=== PATIENT | female | born 1950 | race Caucasian/White ===

== ENCOUNTER 2016-05-25 14:45 | Observation (INO) | payer MEDICARE, OTHER ==
[2016-05-25] VITALS (7 sets, daily range): BP systolic 137–167; BP diastolic 78–91; PULSE 61–78; RESP 11–20; O2SAT 95–98
[~2016-05-25] VITALS: Ht 157.5 cm; Wt 59.1 kg
[2016-05-25 15:10] LABS: EOSINOPHILS % (AUTO) 1.5 % (0-5); Mean Corpuscular Volume 89.8 fL (81-100)
[2016-05-25 15:17] LABS: BASOPHILS % (AUTO) 2.4 % (0-3); MONOCYTES % (AUTO) 8.6 % (4-12); Mean Corpuscular Hemoglobin 30.3 pg (27.0-35.0); NEUTROPHILS % (AUTO) 52.2 % (40-74); Platelet Count 170 bil/L (150-400)
--- NOTE | 2016-05-25 15:19 | ED.REPORT ---
HPI-Chest Pain 40 and Over Date of Service May 25, 2016 ED Provider: Dr. Bentley 65 year old female with a history of CAD, hypertension, hep C and a non-smoker who presents to the ED due to moderate chest pressure that has been progressively worsening in the last 2 weeks. The pain has been present for years , but is concerned about the recent severity. The pain typically lasts from minutes to hours. Pain is worse with exacerbation, but has also been present at rest recently. Pt takes a baby ASA daily. Her last cardiac cath was within the last 5 years at [place] [address] Joyner. Pt has a family history of CAD ( mother and father). PCP: [facility] Notes Stated Complaint: POSSIBLE PRESSURE ON HEART Chief Complaint: Chest Pain Nursing Notes Reviewed: Yes Allergies: Coded Allergies: No Known Allergies (Unverified , 05/25/16) Scheduled Aspirin (Aspirin) 81 Mg Tablet 81 MG PO HS Atenolol (Atenolol) Unknown Strength Tablet 12.5 MG PO HS Estradiol/Levonorgestrel (Climara Pro Patch) 1 Each Patch.tdwk 1 EACH TD WEEKLY Miscellaneous Medications Sumatriptan (Imitrex) Unknown Strength Tablet Unknown Dose PO General Time Seen by MD: 15:19 Chief Complaint Chest pressure Hx Obtained From: Patient Arrived By: Walk-in Sudden in Onset?: No Onset Occurred: More than a week ago... Symptom Duration: Intermittent Location: : Substernal Quality: Pressure Severity: Current: Mild Associated with: Denies: Fever, Shortness of Breath Pertinent Negative: Relieved by nothing Similar Sx Previous: Yes Risk Factors )( CAD Risk Stratification Risk factors reviewed )( TAD Risk Stratification Risk factors reviewed )( PE Risk Stratification Risk factors reviewed Past Medical History Past Medical History Hep C Hypertension Coronary artery disease Past Surgical History None Smoking History Never Smoker Review of Systems Basic Review of Systems Eyes: Vision NL, No discharge ENT: Hearing NL, No pain, No nasal congestion, No pharyngeal pain Allergy / Immune: No allergy Constitutional: Denies: Chills, Fever Respiratory: Denies: Non-productive cough, Shortness of breath Cardiovascular: Reports: Chest pain GI: Denies: Vomiting Musculoskeletal: Denies: Back pain, Extremity pain Skin: Denies Diaphoresis, Denies Rash Complete sys rev & neg: except as marked. Physical Exam Initial Vital Signs Vital Signs (First) Date Time Temp Pulse Resp B/P Pulse Ox O2 Delivery O2 Flow Rate FiO2 05/25/16 14:49 36.1 70 20 167/91 97 Room Air Initial VS: Reviewed Head / Eyes: Atraumatic, Normocephalic, PERRL ENT: Mucous membranes moist, Conjunctiva normal, No scleral icterus Neck: Full range of motion Extremities: Vascular intact, Neuro intact, No swelling, No tenderness Skin: Warm, Dry, No cyanosis Neurologic: Alert, Oriented, Nonfocal Psychiatric: Mood/affect normal, Behavior normal, Normal thought content General/Constitutional: Awake, Alert, Cooperative Respiratory / Chest: Breath sounds NL, Breath sounds = bilat, No respiratory distress, No rales, No rhonchi, No wheezing, No stridor, No chest tenderness Cardiovascular: Heart rate NL, Regular rhythm, Heart sounds NL, No gallop, No murmurs, No rubs, Peripheral circulation NL, Pulses = bilaterally Abdomen: Soft, Non-tender, No guarding, No rebound, BS normoactive Interpretation & Diagnostics Lab Results Interpretation Result Diagram: 05/25/16 1500 05/25/16 1500 Test 05/25/16 15:00 White Blood Count 4.7th/mm3 (3.8-10.1) Red Blood Count 4.32mil/mm3 (3.90-5.20) Hemoglobin 13.1g/dL (12.0-15.6) Hematocrit 38.8% (35.0-46.0) Mean Corpuscular Volume 89.8fL (81-100) Mean Corpuscular Hemoglobin 30.3pg (27.0-35.0) Mean Corpuscular Hemoglobin Concent 33.8% (32.0-37.0) Red Cell Distribution Width 12.4% (12.3-15.4) Platelet Count 170bil/L (150-400) Neutrophils (%) (Auto) 52.2% (40-74) Lymphocytes (%) (Auto) 35.1% (14-46) Monocytes (%) (Auto) 8.6% (4-12) Eosinophils (%) (Auto) 1.5% (0-5) Basophils (%) (Auto) 2.4% (0-3) Sodium Level 134mEq/L (134-144) Potassium Level 3.9mEq/L (3.5-5.2) Chloride Level 95mEq/L (97-108) Carbon Dioxide Level 25mmol/L (18-29) Blood Urea Nitrogen 8mg/dL (8-27) Creatinine 0.48mg/dL (0.57-1.00) Estimat Glomerular Filtration Rate 185mL/min (>59) Glucose Level 93mg/dL (60-99) Calcium Level 9.2mg/dL (8.5-10.1) Magnesium Level 2.1mg/dL (1.6-2.6) Total Bilirubin 0.3mg/dL (0.0-1.2) Aspartate Amino Transf (AST/SGOT) 38U/L (0-50) Alanine Aminotransferase (ALT/SGPT) 35U/L (0-32) Alkaline Phosphatase 58U/L (25-165) Troponin T < 0.010ug/L (0.0-0.011) Total Protein 7.6g/dL (6.4-8.4) Albumin 4.4g/dL (3.4-5.0) Hold Christina Top Tube Received (Received) General Lab Results Interp 1: Labs reviewed ECG Interpretation ECG Interpretation: LVH Time: 15:02 Interpreted by: ED physician Normal ECG Interpretation: Normal rate (62), Normal sinus rhythm X-Ray Chest Interpretation Chest Xray Interpretation: IMPRESSION: No acute cardiopulmonary disease. Dictated by: Jonah Howard M.D. on 05/25/2016 at 15:48 View: Portable, 1 view Interpretation / Wet Read by: Interpret - Radiologist Re-Eval/Medical Decision Med Decision/Clinical Course 65-year-old female with some known coronary disease presenting with symptoms suggestive of angina and been progressive and are now occurring at rest. There are no objective findings of ischemia either on EKG or by labs. She did have some improvement with nitroglycerin. She has had aspirin. I elected not to heparinize given the lack of objective findings in spite of prolonged symptoms. We will admit to the hospitalist service on observation for serial enzymes and further evaluation. Source of Hx: Old records Summary of Info: Cardiac cath from [facility] 21/06/2011, only significant lesion was a 20% stenosis of LAD. Time of Eval: 16:38 Patient Status: Condition improved Re-Evaluation/Progress Note: Updated pt of labs, ECG and imaging results. Recommended admission. Pt understands and agrees with plan. All questions addressed. 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 I, (Dr. Bentley) personally performed the history, physical exam and medical decision- making; I reviewed and confirmed the accuracy of the information in the transcribed note. Signed by: Brittany Allan. 05/25/2016, 3211 copies to: Kip Sloan MD, Donald L MD May 25, 2016 15:19 Brittany Allan May 25, 2016 15:42
[2016-05-25] MEDS ORDERED: ASPI-973 PO (15:25)
[2016-05-25] MEDS ORDERED: ATEN50TA PO (15:25)
[2016-05-25] MEDS ORDERED: ESTR1PAT39 TD (15:25)
[2016-05-25] MEDS ORDERED: IMI25 PO (15:25)
[2016-05-25 15:50] LABS: TROPONIN T < 0.010 ug/L (0.0-0.011)
[2016-05-25 15:55] LABS: Magnesium 2.1 mg/dL (1.6-2.6)
--- NOTE | 2016-05-25 16:06 | DRSVH ---
PROCEDURE: X-RAY CHEST ONE VIEW, PORTABLE ([id number]) INDICATIONS: CHEST PAIN TECHNIQUE: One view of the chest was acquired. COMPARISON: None. FINDINGS: Surgical changes and devices: None. Lungs and pleura: No pleural effusions or pneumothorax. Lungs are clear. Mediastinum: Mediastinal contours appear normal. Heart size is normal. Bones and chest wall: No suspicious bony lesions. Overlying soft tissues appear unremarkable. Dege nerative joint disease in shoulders bilaterally. IMPRESSION: No acute cardiopulmonary disease. Dictated by: Jonah Howard M.D. on 05/25/2016 at 15:48 Approved by: Jonah Howard M.D. on 05/25/2016 at 16:05
[2016-05-25] MEDS ORDERED: Nitroglycerin 2% 1 Gm Ointment TOPICAL SCH (16:40)
[2016-05-25] MEDS ORDERED: Ondansetron 2 mg/mL 2 mL Inj IVPUSH PRN ×3 (16:45→22:40)
[2016-05-25] MEDS ORDERED: Alum-Mag Hydrox-Simeth 30 mL Suspension PO PRN ×3 (16:45→22:40)
--- NOTE | 2016-05-25 17:32 | NUR ---
Admit Pt admitted to [facility] from ED around 1720. Pt states chest pressure to be 1/10. Nitro paste on anterior mid-chest. Pt oriented to room and facility. All questions answered. Call light in reach. VSS. Admit to be done still. Addendum: 05/25/16 at 1830 by ALETA AMBROSE RN Pt states she sees [facility] Dr Joyner in [facility] and GI at gastro also in [facility]
[2016-05-25] MEDS ORDERED: Polyethylene Glycol (PEG) 17 Gm Powder PO PRN ×2 (22:40)
--- NOTE | 2016-05-25 22:40 | PCM.HPMED ---
Subjective Date of Service May 25, 2016 Primary Provider: Admitting Physician: Elias Fithc MD Primary Care Physician: Thi Barraza PA-C Attending Physician: Elias Fitch MD Chief Complaint: chest pressure History of Present Illness: Patient is a 65 year old female with a pmh as outlined below who is presenting with a 3 week history of chest pressure and chest tightness. Patient has been having these symptoms for over 5 years now. Patient had the symptoms approximately 3 years ago and underwent a full battery of cardiac work up even catherization, which did not reveal an occluded vessel. Patient continued to have on and off chest pressure for the next few years, mostly presenting on exertion. Patient for the past 3 weeks had noticed a gradual increase in the severity of her symptoms. Patient not only has chest tightness on exertion but now she is noticing it when she is at rest as well. Patient additionally has noted the presence of a chest tightness which was not present before. Patient lastly has been noticing that she is feeling out of breath after exertion which would normally would not cause this. Patient has no other complaints, patient is at the moment completely stable and is free of chest pain. Review of Systems: Eyes: Vision NL, No discharge ENT: Hearing NL, No pain, No nasal congestion, No pharyngeal pain Allergy / Immune: No allergy Constitutional: Denies: Chills, Fever Respiratory: Denies: Non-productive cough, Shortness of breath Cardiovascular: Reports: Chest pain GI: Denies: Vomiting Musculoskeletal: Denies: Back pain, Extremity pain Skin: Denies Diaphoresis, Denies Rash Complete sys rev & neg: except as marked. Allergies Coded Allergies: No Known Allergies (Unverified , 05/25/16) Home Medications Aspirin (Aspirin) 81 Mg Tablet 81 MG PO DAILY Atenolol (Atenolol) Unknown Strength Tablet Unknown Dose PO DAILY Estradiol/Levonorgestrel (Climara Pro Patch) 1 Each Patch.tdwk 1 EACH TD WEEKLY Miscellaneous Medications Sumatriptan (Imitrex) Unknown Strength Tablet Unknown Dose PO PMH Hep C Hypertension Coronary artery disease Surgical History none Social History Hx Alcohol Use: No Hx Substance Use: No Smoking Status: Never Smoker Exam Vital Signs Vital Sign - Last Date Time Temp Pulse Resp B/P Pulse Ox O2 Delivery O2 Flow Rate FiO2 05/25/16 21:36 37.0 61 20 160/86 96 Room Air Exam General/Constitutional: Awake, Alert, Cooperative Head / Eyes: Atraumatic, Normocephalic, PERRL ENT: Mucous membranes moist, Conjunctiva normal, No scleral icterus Neck: Full range of motion Respiratory / Chest: Breath sounds NL, Breath sounds = bilat, No respiratory distress, No rales, No rhonchi, No wheezing, No stridor, No chest tenderness Cardiovascular: Heart rate NL, Regular rhythm, Heart sounds NL, No gallop, No murmurs, No rubs, Peripheral circulation NL, Pulses = bilaterally Abdomen: Soft, Non-tender, No guarding, No rebound, BS normoactive Extremities: Vascular intact, Neuro intact, No swelling, No tenderness Skin: Warm, Dry, No cyanosis Neurologic: Alert, Oriented, Nonfocal Psychiatric: Mood/affect normal, Behavior normal, Normal thought content Lab and Diagnostics Result Diagram: 05/25/16 1500 05/25/16 1500 X-Rays, CTs and MRIs PROCEDURE: X-RAY CHEST ONE VIEW, PORTABLE ([id number]) INDICATIONS: CHEST PAIN TECHNIQUE: One view of the chest was acquired. COMPARISON: None. FINDINGS: Surgical changes and devices: None. Lungs and pleura: No pleural effusions or pneumothorax. Lungs are clear. Mediastinum: Mediastinal contours appear normal. Heart size is normal. Bones and chest wall: No suspicious bony lesions. Overlying soft tissues appear unremarkable. Degenerative joint disease in shoulders bilaterally. IMPRESSION: No acute cardiopulmonary disease. 12-lead ECG sinus rythym @ 62 possible left atrial enlargment Assessment & Plan Patient is a 65 year old female with a pmh of hypertension that is presenting with a 3 week history of chest pressure and chest tightness. Patient is having it both at rest and at exertion. Chest pressure/tightness - Alarming given increased frequency of symptoms - troponins are negative, will continue to trend - ekg is negative initially - will schedule for exercise stress test tomorrow - will hold beta blockers for the time being - will place on telemetry DVT ppx via lovenox GI ppx not warranted VTE Mechanical Devices: Venous Foot Pump Elias Fitch MD May 25, 2016 22:40
[2016-05-26] VITALS (8 sets, daily range): BP systolic 148–167; BP diastolic 82–94; PULSE 57–73; RESP 19–21; O2SAT 93–98
[2016-05-26 06:43] LABS: BASOPHILS % (AUTO) 2.2 % (0-3); EOSINOPHILS % (AUTO) 2.6 % (0-5); MONOCYTES % (AUTO) 10.1 % (4-12); Mean Corpuscular Hemoglobin 30.6 pg (27.0-35.0); NEUTROPHILS % (AUTO) 50.4 % (40-74); Platelet Count 161 bil/L (150-400)
--- NOTE | 2016-05-26 10:19 | NUR ---
Off floor to CVL Patient off floor at 0855 to CVL. VSS, denies chest pain or pressure, in no apparent distress. 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
--- NOTE | 2016-05-26 12:30 | PCM.PNMED ---
Subjective Date of Service May 26, 2016 Subjective Andreina reports that she continues to have chest pain under the left breast which is sharp at times and squeezing at other times, her pain has been 1/10 in severity today. Exam Vital Signs Vital Sign - Last Date Time Temp Pulse Resp B/P Pulse Ox O2 Delivery O2 Flow Rate FiO2 05/26/16 11:13 36.5 73 21 152/84 97 Room Air Exam General: Patient seated in the bedside chair upon my entering the exam room, comfortable and well appearing. Awake, alert, and oriented. No acute distress. HEENT: Moist mucus membranes. Sclera anicteric. PERRLA Cardiac: RRR without murmur, rub, or gallop Lungs: Good inspiratory effort without wheezes, rales, or rhonchi Abdomen: Normoactive bowel tones. Nontender, nondistended and soft. Extremities: No clubbing, cyanosis, or edema bilaterally. Skin: Normal turgor without rash Neuro: Ambulates independently with ease within the room. Moves all 4 extremities without difficulty. No facial droop or tongue deviation. IVs and Medications Medications Reviewed: Medications were reviewed in detail Lab and Diagnostics Result Diagram: 05/26/1660405/26/16 06 X-Rays, CTs and MRIs PROCEDURE: X-RAY CHEST ONE VIEW, PORTABLE ([id number]) INDICATIONS: CHEST PAIN TECHNIQUE: One view of the chest was acquired. COMPARISON: None. FINDINGS: Surgical changes and devices: None. Lungs and pleura: No pleural effusions or pneumothorax. Lungs are clear. Mediastinum: Mediastinal contours appear normal. Heart size is normal. Bones and chest wall: No suspicious bony lesions. Overlying soft tissues appear unremarkable. Degenerative joint disease in shoulders bilaterally. IMPRESSION: No acute cardiopulmonary disease. Assessment & Plan Andreina is a 65yo female with hypertension and a hx of hepatitis C who presented with worsening chest pressure and chest tightness over the past 3 weeks. Her chest pain is present at rest and worsens with exertion. Chest pain, present on admission, ongoing - Suspect this is noncardiac, however, evaluation of the heart is indicated - Serial troponin levels have been normal - Stress test results pending - Echocardiogram to be done - Telemetry - Aspirin 81mg daily Hypertension, chronic and stable - Continue home dosing of Atenolol - Monitor Disposition: Anticipate discharge home tomorrow if stress test and echo are normal VTE Prophylaxis: Sub-Q Enoxaparin VTE Mechanical Devices: Intermittant Pneumatic CD Resuscitation Status: CPR: Attempt Resuscitation Attending Statement The patient was seen and examined together with Dr. Durbin on 05/26/2016 and I agree with the history, exam and plan as outlined in the note above. Faye Durbin DO May 26, 2016 12:30 Jaun Christian MD May 27, 2016 13:22
--- NOTE | 2016-05-26 15:22 | NUR ---
Social Work: Initial Assessment Data & Assessment: EMR Reviewed. See Initial Assessment. Lunchroom Monitor met with patient at bedside to complete initial assessment. Patient is a 65 y/o female that admitted for CP. Patient was alert and oriented x 3. Patient reported that her NOK is Aidan Mike- [phone] and he is her DPOA. SW requested a copy of patient's DPOA. Patient's PCP is Thi Barraza PA-C. Patient's primary insurance is [employer] medicare. Patient does not have a re-admit score. Patient does not have any VA or LTC benefits. Patient reports that she lives in a multilevel home with three steps to enter and fourteen steps to enter each level on the inside. Patient is independent with ADL's. Patient does not have any SNF or HH history. Patient does not have any identified SW needs at the current time. SW will continue to follow. Plan: Patient is likely to discharge home no needs. SW will continue to follow. Austyn Mendoza LMSW, WILFREDO Addendum: 05/26/16 at 1538 by AUSTYN CLAROS Amended: Links added.
--- NOTE | 2016-05-26 16:10 | DRSVH ---
[facility] [address] [place] [address] Echocardiogram Report Name: DOYLE LESTER PStudy Date: 05/26/2016 Height: 62 in Hospital Exam Location: [facility] Weight: 130 lb Gender: Female BSA: 1.6 m2 : 1950 Age: 65 yrs BP: 157/82 mmHg Reason For Study: Chest pain Ordering Physician: Performed By: Sadi Hurst Interpretation Summary The left ventricle is normal in size. Left ventricular systolic function is normal without focal wall motion abnormalities. The ejection fraction is estimated to be 60-65%. Assessment of diastolic parameters indicates a relaxation abnormality of the left ventricle, consistent with normal filling pressures. The right ventricle is normal in size, thickness and function. The right ventricular systolic pressure is estimated at 24 mmHg assuming a right atrial pressure of 3 mm Hg. Both atria are normal in size. There is no significant valvular heart disease. The ascending aorta is mildly enlarged. Procedure: A two-dimensional transthoracic echocardiogram with color flow and Doppler was performed. The study quality was technically adequate. There is no prior echocardiogram noted for this patient. The patient was in normal sinus rhythm during the exam. Left Ventricle: The left ventricle is normal in size. There is mild asymmetric left ventricular hypertrophy. Left ventricular systolic function is normal without focal wall motion abnormalities. The ejection fraction is estimated to be 60-65%. Assessment of diastolic parameters indicates a relaxation abnormality of the left ventricle, consistent with normal filling pressures. Right Ventricle: The right ventricle is normal in size, thickness and function. Atria: Both atria are normal in size. The interatrial septum is intact with no evidence for an atrial septal defect. There is no Doppler evidence for an interatrial shunt. Mitral Valve: The mitral valve leaflets appear mildly thickened, but open well. There is trace mitral regurgitation. Aortic Valve: The aortic valve is trileaflet. The aortic valve is slightly calcified. There is trace aortic regurgitation. Tricuspid Valve: The tricuspid valve is normal in structure and function. There is trace tricuspid regurgitation. The right ventricular systolic pressure is estimated at 24 mmHg assuming a right atrial pressure of 3 mm Hg. Pulmonic Valve: The pulmonic valve is normal in structure and function. There is mild pulmonic regurgitation. There is no significant valvular heart disease. Great Vessels: The aortic root is normal size. The ascending aorta is mildly enlarged. The aortic arch is normal in size. The pulmonary artery is normal size. The IVC is of normal diameter and collapses greater than 50% with a sniff. This suggests a low right atrial pressure of 3 mm Hg. Pericardium/ Pleura There is no pericardial effusion. There is no pleural effusion. MMode/2D Measurements & Calculations LVIDd: 4.1 cm RA long axis LVOT diam: 1.9 cm LVIDs: 2.9 cm LA A2 area: 16.1 cm AoV Opening FS: 28.0 % LA A4 area: 16.1 cm RA area EPSS: 0.57 cm LA length (vol) Ao root diam IVSd: 1.1 cm : 12.4 cm LVPWd: 0.88 cm LA vol: 43.6 ml RA vol asc Aorta Diam LA vol index : 28.1 ml RA Ao Arch Diam (Prox : 17.7 mm2 Trans): 2.4 cm IVC diam: 1.4 cm LV soria. diameter/BSA LV sys. diameter/BSA RVD1 (basal) TAPSE: 2.3 cm (cm/m^2): 2.6 (cm/m^2): 1.8 Doppler Measurements & Calculations Ao V2 max MV E max sathish MV E/A: 0.78 TR max sathish : 133.6 cm/sec : 62.1 cm/sec Med Peak E' Sathish : 231.1 cm/sec Ao max PG MV A max sathish TR max PG : 7.1 mmHg : 79.4 cm/sec E/E' med: 10.6 : 21.4 mmHg Ao mean PG MV P1/2t: 67.7 msec Lat Peak E' Sathish PA V2 max : 81.9 cm/sec LVOT Max Sathish E/E' lat: 9.6 PA mean PG : 100.7 cm/sec E/e' average PA Accel Time DIANNA(I,D): 2.4 cm MV A dur: 0.13 sec: 0.13 sec sev ratio MV dec time MV P1/2t max sathish Ao V2 mean LV V1 max PG : 0.22 sec : 86.2 cm/sec MVA(P1/2t): 3.2 cm2 Ao V2 VTI: 24.5 cmLV V1 VTI DIANNA(V,D): 2.1 cm2 : 21.5 cm PA V2 mean DIANNA indexed to BSA : 66.2 cm/sec (cm^2/m^2): 1.5 Reading Physician:PM
--- NOTE | 2016-05-26 18:22 | DRSVH ---
PROCEDURE: ONE DAY TREADMILL STRESS TEST. Rest and exercise myocardial perfusion SPECT with gated i maging and ejection fraction RADIOPHARMACEUTICAL: 7.5 mCi Tc-99m tetrofosmin IV at rest and 23.9 mCi Tc-99m tetrofosmin IV at pea k exercise. [id number] was performed. INDICATIONS: Chest pain and exertional dyspnea. TECHNIQUE: Radiopharmaceutical was injected at peak stress test, and also at rest. SPECT images wer e obtained. SPECT myocardial perfusion images were displayed in short axis, horizontal long axis, an d vertical long axis views. Gated images were reviewed using [employer] software. COMPARISON: None. CARDIAC STRESS: A standard Jhonatan treadmill exercise tolerance test was performed by the patient unde r the supervision of attending staff. The patient exercised for 8 minutes and 59 seconds; functional aerobic impairment (KENDRA) is -40%. Hemodynamic Data: There is normal blood pressure and heart rate response to exercise stress. The pa tient achieved 92% of maximum predicted heart rate at peak exercise. Symptoms: The patient complained of 2/10 chest discomfort. EKG: Non diagnostic EKG changes for ischemia. FINDINGS: Raw Data: There is good myocardial labeling by radiotracer. No significant motion artifacts. Left Ventricular Function: Gated images demonstrate normal left ventricle wall thickening. No segme ntal wall motion abnormality. Visually there is no TID. The left ventricle resting end-diastolic vo lume is 41 mL. Left ventricle stress ejection fraction is 90%; normal values are above 45%. Myocardial Perfusion: There is normal distribution of activity in the left and right ventricular edna cardium. No fixed or reversible perfusion defects. IMPRESSION: 1. Good functional capacity. 2. No diagnostic ST-T changes. 3. No significant arrhythmia. 4. No ischemia. 5. Normal wall motion and ejection fraction. Dictated by: Vadim Araya M.D. on 05/26/2016 at 17:54 Transcribed by: KEVIN on 05/26/2016 at 21:22 Approved by: Vadim Araya M.D. on 06/03/2016 at 14:20
--- NOTE | 2016-05-26 20:57 | NUR ---
Case Management: Melody explained to patient at 1925, all questions answered. Signed original placed in chart, copy given to patient. Pt refused the Medicare Drug coverage information. Adina Morales RN
[2016-05-27 01:15] VITALS: BP 146/93; PULSE 81; RESP 20; O2SAT 95
--- NOTE | 2016-05-27 03:23 | NUR ---
activity Pt remained in bed for the shift, no complaints of chest pain or discomfort. Pt complained of headache, tylenol given with good results. Pt resting well, will continue to monitor.
[2016-05-27 04:57] VITALS: BP 173/90; PULSE 66; RESP 20; O2SAT 99
[2016-05-27 05:16] VITALS: PULSE 61
[2016-05-27 08:00] VITALS: PULSE 86
--- NOTE | 2016-05-27 08:43 | PCM.DIMED ---
Faye Durbin DO 05/27/16 0843: Discharge Instructions Date of Service May 27, 2016 Dates of Hospitalization May 25, 2016 at 16:52 Discharge Diagnosis Discharge Diagnosis Chest pain, unlikely to be cardiac Hypertension, chronic and stable Medication Instructions Continue with your previous home medications. Start chlorthalidone, take half a tablet (12.5mg) by mouth daily. This medication is to treat your hypertension. I have sent a prescription for #15 tablets which is a 30 day supply for you; further prescriptions will need to come through your primary care provider. Test Results Echocardiogram: Interpretation Summary The left ventricle is normal in size. Left ventricular systolic function is normal without focal wall motion abnormalities. The ejection fraction is estimated to be 60-65%. Assessment of diastolic parameters indicates a relaxation abnormality of the left ventricle, consistent with normal filling pressures. The right ventricle is normal in size, thickness and function. The right ventricular systolic pressure is estimated at 24 mmHg assuming a right atrial pressure of 3 mm Hg. Both atria are normal in size. There is no significant valvular heart disease. The ascending aorta is mildly enlarged. Nuclear medicine stress test: Normal Diet Low fat, Low Sodium Activity No restrictions Call your provider Fever or Chills, Shortness of breath, Bleeding, Chest pain, Vomitting, Excessive diarrhea, Weakness (unilateral) Patient Instructions Follow-up plan Please call your primary care provider to schedule a follow up appointment to be seen in 1 week. Also, it is important that you have routine blood pressure checks and may need additional medication in order to adequately manage your hypertension; please discuss with your PCP. Please review the estradiol patch use with your primary care provider. Follow-up Provider: Thi Barraza PA-C Follow-up with PCP in: 1 week Jaun Christian MD 05/27/16 1323: Faye Durbin DO May 27, 2016 08:43 Jaun Christian MD May 27, 2016 13:23
[2016-05-27 08:54] VITALS: BP 145/79; PULSE 71; RESP 20; O2SAT 95
--- NOTE | 2016-05-27 10:10 | PCM.DC.MED ---
Discharge Summary Date of Service May 27, 2016 Dates of Hospitalization Date of Hospital Admission May 25, 2016 at 16:52 Date of Discharge: May 27, 2016 Providers: Admitting Physician: Elias Fitch MD Primary Care Physician: Thi Barraza PA-C Attending Physician: Elias Fitch MD Diagnosis at Time of Discharge Diagnosis at Time of Discharge Chest pain, unlikely to be cardiac Hypertension, chronic and stable Procedures XRay, CTs & MRIs PROCEDURE: X-RAY CHEST ONE VIEW, PORTABLE ([id number]) INDICATIONS: CHEST PAIN TECHNIQUE: One view of the chest was acquired. COMPARISON: None. FINDINGS: Surgical changes and devices: None. Lungs and pleura: No pleural effusions or pneumothorax. Lungs are clear. Mediastinum: Mediastinal contours appear normal. Heart size is normal. Bones and chest wall: No suspicious bony lesions. Overlying soft tissues appear unremarkable. Degenerative joint disease in shoulders bilaterally. IMPRESSION: No acute cardiopulmonary disease. Cardiac Echo Impression Transthoracic echo: Interpretation Summary The left ventricle is normal in size. Left ventricular systolic function is normal without focal wall motion abnormalities. The ejection fraction is estimated to be 60-65%. Assessment of diastolic parameters indicates a relaxation abnormality of the left ventricle, consistent with normal filling pressures. The right ventricle is normal in size, thickness and function. The right ventricular systolic pressure is estimated at 24 mmHg assuming a right atrial pressure of 3 mm Hg. Both atria are normal in size. There is no significant valvular heart disease. The ascending aorta is mildly enlarged. Other Diagnostics Caution: Report not yet finalized and possibly incomplete! PROCEDURE: ONE DAY TREADMILL STRESS TEST. Rest and exercise myocardial perfusion SPECT with gated imaging and ejection fraction RADIOPHARMACEUTICAL: 7.5 mCi Tc-99m tetrofosmin IV at rest and 23.9 mCi Tc-99m tetrofosmin IV at peak exercise. [id number] was performed. INDICATIONS: Chest pain and exertional dyspnea. TECHNIQUE: Radiopharmaceutical was injected at peak stress test, and also at rest. SPECT images were obtained. SPECT myocardial perfusion images were displayed in short axis, horizontal long axis, and vertical long axis views. Gated images were reviewed using [employer] software. COMPARISON: None. CARDIAC STRESS: A standard Jhonatan treadmill exercise tolerance test was performed by the patient under the supervision of attending staff. The patient exercised for 8 minutes and 59 seconds; functional aerobic impairment (KENDRA) is - 40%. Hemodynamic Data: There is normal blood pressure and heart rate response to exercise stress. The patient achieved 92% of maximum predicted heart rate at peak exercise. Symptoms: The patient complained of 2/10 chest discomfort. EKG: Non diagnostic EKG changes for ischemia. FINDINGS: Raw Data: There is good myocardial labeling by radiotracer. No significant motion artifacts. Left Ventricular Function: Gated images demonstrate normal left ventricle wall thickening. No segmental wall motion abnormality. Visually there is no TID. The left ventricle resting end-diastolic volume is 41 mL. Left ventricle stress ejection fraction is 90%; normal values are above 45%. Myocardial Perfusion: There is normal distribution of activity in the left and right ventricular myocardium. No fixed or reversible perfusion defects. IMPRESSION: 1. Good functional capacity. 2. No diagnostic ST-T changes. 3. No significant arrhythmia. 4. No ischemia. 5. Normal wall motion and ejection fraction. Dictated by: Vadim Araya M.D. on 05/26/2016 at 17:54 Brief History Per H&P by Dr Fitch: Patient is a 65 year old female with a pmh as outlined below who is presenting with a 3 week history of chest pressure and chest tightness. Patient has been having these symptoms for over 5 years now. Patient had the symptoms approximately 3 years ago and underwent a full battery of cardiac work up even catherization, which did not reveal an occluded vessel. Patient continued to have on and off chest pressure for the next few years, mostly presenting on exertion. Patient for the past 3 weeks had noticed a gradual increase in the severity of her symptoms. Patient not only has chest tightness on exertion but now she is noticing it when she is at rest as well. Patient additionally has noted the presence of a chest tightness which was not present before. Patient lastly has been noticing that she is feeling out of breath after exertion which would normally would not cause this. Patient has no other complaints, patient is at the moment completely stable and is free of chest pain. Hospital Course The following were addressed during this hospitalization: Andreina is a 65yo female with hypertension and a hx of hepatitis C who presented with worsening chest pressure and chest tightness over the past 3 weeks. Her chest pain is present at rest and worsens with exertion. Chest pain, present on admission, mild and ongoing - Suspect this is noncardiac given her normal nuclear medicine stress test and echocardiogram - Serial troponin levels have been normal - Telemetry monitoring done throughout her hospitalization - Aspirin 81mg given daily Hypertension, chronic with longstanding poor control per patient, stable - Continued home dosing of Atenolol - Discussed the importance of good blood pressure control with the patient - Recommend addition of chlorthalidone 12.5mg daily for antihypertensive therapy and close outpatient follow up - Monitored throughout this hospitalization Estradiol patch use - the patient reports that she uses this for treatment of osteopenia and states that she has not had a DEXA scan "in a long, long time." Advised Andreina to discuss this with her primary care provider as there are alternative therapies to estrogen replacement for the treatment of osteopenia. Exam Vital Signs (Last) Date Time Temp Pulse Resp B/P Pulse Ox O2 Delivery O2 Flow Rate FiO2 05/27/16 08:54 36.8 71 20 145/79 95 Room Air Exam General: Sitting up in bed upon my entering the exam room, comfortable and well appearing. Awake, alert, and oriented. No acute distress. HEENT: Moist mucus membranes. Sclera anicteric. PERRLA Cardiac: RRR without murmur, rub, or gallop. No JVD Lungs: Good inspiratory effort without wheezes, rales, or rhonchi Abdomen: Normoactive bowel tones. Nontender, nondistended and soft. Extremities: No clubbing, cyanosis, or edema bilaterally. Skin: Normal turgor without rash Neuro: Ambulates independently with ease within the room. Moves all 4 extremities without difficulty. No facial droop or tongue deviation. Psychiatric: Normal affect. Pleasant. Test 05/25/16 15:00 05/26/16 00:14 05/26/16 06:05 Magnesium Level 2.1mg/dL (1.6-2.6) Hold Christina Top Tube Received (Received) Troponin T 0.010ug/L (0.0-0.011) White Blood Count 5.0th/mm3 (3.8-10.1) Red Blood Count 4.48mil/mm3 (3.90-5.20) Hemoglobin 13.7g/dL (12.0-15.6) Hematocrit 40.3% (35.0-46.0) Mean Corpuscular Volume 90.0fL (81-100) Mean Corpuscular Hemoglobin 30.6pg (27.0-35.0) Mean Corpuscular Hemoglobin Concent 34.0% (32.0-37.0) Red Cell Distribution Width 12.4% (12.3-15.4) Platelet Count 161bil/L (150-400) Neutrophils (%) (Auto) 50.4% (40-74) Lymphocytes (%) (Auto) 34.5% (14-46) Monocytes (%) (Auto) 10.1% (4-12) Eosinophils (%) (Auto) 2.6% (0-5) Basophils (%) (Auto) 2.2% (0-3) Sodium Level 138mEq/L (134-144) Potassium Level 4.4mEq/L (3.5-5.2) Chloride Level 100mEq/L (97-108) Carbon Dioxide Level 28mmol/L (18-29) Blood Urea Nitrogen 9mg/dL (8-27) Creatinine 0.58mg/dL (0.57-1.00) Estimat Glomerular Filtration Rate 149mL/min (>59) Glucose Level 99mg/dL (60-99) Calcium Level 9.2mg/dL (8.5-10.1) Total Bilirubin 0.3mg/dL (0.0-1.2) Aspartate Amino Transf (AST/SGOT) 37U/L (0-50) Alanine Aminotransferase (ALT/SGPT) 33U/L (0-32) Alkaline Phosphatase 58U/L (25-165) Total Protein 7.1g/dL (6.4-8.4) Albumin 4.0g/dL (3.4-5.0) Discharge Medications Discharge Medications Aspirin (Aspirin) 81 Mg Tablet 81 MG PO HS (Reported) Atenolol (Atenolol) Unknown Strength Tablet 12.5 MG PO HS (Reported) Chlorthalidone (Chlorthalidone) 25 Mg Tablet 12.5 MG PO DAILY Take half of a tablet by mouth once daily Prescribed by: FAYE DURBIN DO Estradiol/Levonorgestrel (Climara Pro Patch) 1 Each Patch.tdwk 1 EACH TD WEEKLY (Reported) Miscellaneous Medications Sumatriptan (Imitrex) Unknown Strength Tablet Unknown Dose PO (Reported) Additional med instructions Continue with your home medications. Followup Plan Disposition: Home Follow-up plan Please call your primary care provider to schedule a follow up appointment to be seen in 1 week. Also, it is important that you have routine blood pressure checks and may need additional medication in order to adequately manage your hypertension; please discuss with your PCP. Please review the estradiol patch use with your primary care provider. Discharge Diet: Low fat, Low Sodium Discharge Activity: No restrictions Follow-up Provider: Thi Barraza PA-C Follow-up with PCP in: 1 week Attending Statement The patient was seen and examined together with Dr. Durbin on 05/27/2016 and I agree with the history, exam and plan as outlined in the note above. Faye Durbin DO May 27, 2016 10:05 Jaun Christian MD May 27, 2016 13:23
[2016-05-27] MEDS ORDERED: HYG25 PO (11:17)
--- NOTE | 2016-05-27 11:21 | NUR ---
Social Work: Discharge Data: Pt is on day 2 of hospitalization. EMR reviewed. Pt discussed in rounds. D/C orders are in. No d/c planning needs at this time. EXPLOSIVE SPECIALIST will continue to follow if needs arise. Assessment: Pt who is independent at baseline. Plan: Pt will d/c home via POV today. No d/c planning needs at this time. EXPLOSIVE SPECIALIST will continue to follow if needs arise. VANCE Torres
[2016-05-27 12:33] VITALS: BP 147/75; PULSE 66; RESP 19; O2SAT 97
--- NOTE | 2016-05-27 14:26 | NUR ---
Discharge Nursing note: Patient was discharged home at 1400. Patients IV was d/cd intact. All of patients discharge information was reviewed with her and her questions were answered to her satisfaction. Patient was escorted to the hospital lobby by a nursing staff member and she was driven to home by her .
== END 2016-05-27 14:08 | disposition home or self-care (01) ==
LOC: SED 14:45 → OBSVTOIN 16:52 → MPC 16:52 → INTOOBSV 16:52 → MPC 17:10
PROVIDERS: ADMIT Internal Medicine; ATTEND Internal Medicine
DX: R07.89 Other chest pain (principal); I10 Essential (primary) hypertension; I25.10 Atherosclerotic heart disease of native coronary artery without angina pectoris; Z79.82 Long term (current) use of aspirin; Z82.49 Family history of ischemic heart disease and other diseases of the circulatory system; B19.20 Unspecified viral hepatitis C without hepatic coma
CPT/HCPCS: 36415; 71010; 78452; 80053; 83735; 84484; 85025; 93005; 93017; 99285; A9502; C8929; G0378